=== PATIENT | female | born 1985 | race Caucasian/White ===

== ENCOUNTER 2017-03-15 14:58 | Emergency (ER) | payer OTHER ==
[2017-03-15 16:07] LABS: #Basophils 0.1 thou/uL (0.0-0.2); #Eosinphils 0.5 thou/uL (0.0-0.7); #Lymphocytes 2.4 thou/uL (1.20-3.40); #Monocytes 0.7 thou/uL (0.11-0.59); #Neutrophils 9.6 thou/uL (1.40-6.50); %Basophils 0.5 % (0.0-1.0); %Eosinophils 3.8 % (0.0-10.0); %Lymphocytes 17.9 % (21.0-51.0); %Monocytes 5.3 % (0.0-10.0); Hematocrit 38.8 % (36.0-47.0); Mean Platelet Volume 8.1 fL (7.4-10.4); Red Blood Cell (RBC) Count 4.37 mill/uL (4.20-5.40); White Blood Cell (WBC) Count 13.3 thou/uL (4.8-10.8)
[2017-03-15 16:26] LABS: Bilirubin Negative (Negative); Blood, Urine Negative (Negative); Glucose, Urine (Dipstick) Negative (Negative); Ketone, Urine Negative (Negative); Nitrite Negative (Negative); Protein, Urine (Dipstick) Negative (Neg-Trace)
[2017-03-15 16:38] LABS: ALT (SGPT) 18 U/L (8-55); AST (SGOT) 17 U/L (5-34); Alkaline Phosphatase 72 U/L (40-150); Anion Gap 12 mmol/L (10-20); BUN (Urea Nitrogen) 9 mg/dL (7.0-18.7); Bilirubin, Total 0.3 mg/dL (0.2-1.2); Calc. Creatinine Clearance 0 mL/min (70-130); Carbon Dioxide 25 mmol/L (22-29); Chloride 107 mmol/L (98-107); Estimated GFR-MDRD Greater than 90; Globulin 3.4 g/dL (2.4-3.5); Protein, Total 7.4 g/dL (6.0-8.3)
--- NOTE | 2017-03-15 19:33 | ULT ---
ULTRASOUND PELVIC ULTRASOUND TRANSVAGINAL DOPPLER DUPLEX: HISTORY: A 31-year-old female with right ectopic . Followup. COMPARISON: None available. TECHNIQUE: Transabdominal transducer used to evaluate intrapelvic contents using the urinary bladder as an acou stic window. Endovaginal transducer used to visualize intrapelvic contents in greater detail. Color flow Doppler and Pulsed Doppler spectral waveform analysis of ovaries. FINDINGS: Uterus: 8.5 x 4.5 x 6 cm. Endometrial stripe: 0.7 cm (7 mm). Right ovary: 2.5 x 2 x 4 cm. Left ovary: 3 x 1.5 x 2 cm. No uterine leiomyoma is identified. Blood flow is demonstrated in both ovaries. No ovarian cyst (defined as 2 cm or greater) is identified. No free fluid is in the cul-de-sac. No ectopic gestation is visualized. No intrauterine gestational sac is visualized. IMPRESSION: 1. Normal. 2. Nonvisualization of ectopic on ultrasound does not rule it out. terese POS: [facility]
== END 2017-03-15 18:21 | disposition home or self-care (01) ==
LOC: ERS 14:58
DX: O03.9 Complete or unspecified spontaneous abortion without complication (principal); D64.9 Anemia, unspecified; F41.9 Anxiety disorder, unspecified; F17.210 Nicotine dependence, cigarettes, uncomplicated
CPT/HCPCS: 76856; 80053; 81003; 81025; 84702; 85025; 88305

== ENCOUNTER 2017-06-01 08:42 | Emergency (ER) | payer OTHER ==
[2017-06-01 09:22] LABS: #Basophils 0.1 thou/uL (0.0-0.2); #Eosinphils 0.4 thou/uL (0.0-0.7); #Lymphocytes 1.7 thou/uL (1.20-3.40); #Monocytes 0.5 thou/uL (0.11-0.59); #Neutrophils 3.6 thou/uL (1.40-6.50); %Basophils 0.8 % (0.0-1.0); %Eosinophils 7.2 % (0.0-10.0); %Lymphocytes 26.9 % (21.0-51.0); %Monocytes 7.3 % (0.0-10.0); %Neutrophils 57.8 % (42.0-75.0); Hemoglobin 12.3 g/dL (12.0-16.0); Mean Corpuscular HGB CONC 33.1 g/dL (32.0-36.0); Mean Corpuscular Hemoglobin 29.3 pg (27.0-31.0); Mean Corpuscular Volume 88.7 fl (81.0-99.0); Mean Platelet Volume 8.2 fL (7.4-10.4); Platelet Count 294 thou/uL (130-400); RBC Distribution Width 13.7 % (11.5-14.5); Red Blood Cell (RBC) Count 4.19 mill/uL (4.20-5.40); White Blood Cell (WBC) Count 6.2 thou/uL (4.8-10.8)
[2017-06-01 09:25] LABS: BHCG - Serum POSITIVE (NEGATIVE)
[2017-06-01 09:26] LABS: Pregs Control Background? CLEAR/WHITE (CLR/WHITE); Pregs Control Bar Appear? YES (CONTROL BAR)
--- NOTE | 2017-06-01 10:10 | ULT ---
PELVIC ULTRASOUND WITH DOPPLER: (Transabdominal, transvaginal, tejeda scale, color flow, and spectral Doppler) HISTORY: Pelvic pain. FINDINGS: The uterus measures 10 x 5.5 x 6.7 cm without focal mass or endometrial fluid. The endometrium measu res 1 cm in thickness. No intrauterine gestational sac is seen The right ovary measures 3.6 x 2.8 x 2.7 cm and the left ovary measures 2.1 x 1.4 x 2.3 cm. Flow is demonstrated to both ovaries. No ad nexal mass is seen. A tiny amount of free fluid is seen in the cul-de-sac. IMPRESSION: No significant abnormalities identified. POS: [facility]
[2017-06-01 10:22] LABS: Bilirubin Negative (Negative); Blood, Urine Negative (Negative); Clarity CLEAR (Clear); Glucose, Urine (Dipstick) Negative (Negative); Leukocyte Negative (Negative); Nitrite Negative (Negative); Protein, Urine (Dipstick) Negative (Neg-Trace); Specific Gravity, Urine 1.007 (1.002-1.036); Urobilinogen 0.2 mg/dL (0.2-1.0)
== END 2017-06-01 10:57 | disposition home or self-care (01) ==
LOC: ERS 08:42
DX: O99.89 Other specified diseases and conditions complicating pregnancy, childbirth and the puerperium (principal); R10.32 Left lower quadrant pain; O99.211 Obesity complicating pregnancy, first trimester; O99.341 Other mental disorders complicating pregnancy, first trimester; F41.9 Anxiety disorder, unspecified; O99.331 Smoking (tobacco) complicating pregnancy, first trimester; F17.210 Nicotine dependence, cigarettes, uncomplicated; Z3A.01 Less than 8 weeks gestation of pregnancy
CPT/HCPCS: 36415; 76856; 81003; 84702; 84703; 85025; 86900; 86901; 93976

== ENCOUNTER 2017-08-19 12:16 | Emergency (ER) | payer OTHER ==
[2017-08-19 12:47] LABS: Bilirubin Negative (Negative); Blood, Urine Large (Negative); Clarity CLEAR (Clear); Glucose, Urine (Dipstick) Negative (Negative); Leukocyte Moderate (Negative); Nitrite Negative (Negative); Protein, Urine (Dipstick) Trace mg/dL (Neg-Trace); Specific Gravity, Urine 1.025 (1.002-1.036)
[2017-08-19 12:51] LABS: Bacteria/HPF 1+ HPF (None Seen)
[2017-08-19 12:56] LABS: Pathc Cast-AUWi Flag 3.38 (0-2.49)
[2017-08-19 13:07] LABS: Hyaline Casts/LPF NONE SEEN LPF (0-3 Hyaline); Manual Microscopic Reviewed? No Path Casts Seen
[2017-08-19 13:16] LABS: #Eosinphils 0.2 thou/uL (0.0-0.7); #Lymphocytes 1.8 thou/uL (1.20-3.40); #Monocytes 0.7 thou/uL (0.11-0.59); #Neutrophils 10.3 thou/uL (1.40-6.50); %Basophils 0.2 % (0.0-1.0); %Eosinophils 1.6 % (0.0-10.0); %Monocytes 5.6 % (0.0-10.0); %Neutrophils 78.6 % (42.0-75.0); Hemoglobin 12.5 g/dL (12.0-16.0); Mean Corpuscular HGB CONC 34.2 g/dL (32.0-36.0); Mean Corpuscular Hemoglobin 29.7 pg (27.0-31.0); Mean Corpuscular Volume 86.8 fl (81.0-99.0); Mean Platelet Volume 8.3 fL (7.4-10.4); Platelet Count 259 thou/uL (130-400); RBC Distribution Width 13.6 % (11.5-14.5); Red Blood Cell (RBC) Count 4.19 mill/uL (4.20-5.40); White Blood Cell (WBC) Count 13.1 thou/uL (4.8-10.8)
--- NOTE | 2017-08-19 15:12 | ULT ---
OB ULTRASOUND COMPLETE: Date: 08/19/17 HISTORY: 31-year-old female with history of vaginal bleeding. FINDINGS: Single viable intrauterine fetus noted in cephalic presentation. Placenta is anterior and right-sided . heart rate is 141 beats/minute. Cervical length appears to be within normal limits. Amniotic fluid is within normal limits. There is no evidence for placenta previa or abruptio placenta. There i s some focal thickening of the anterior myometrium, probably a contraction wave or possibly related t o an underlying fibroid. anatomy was not addressed at the time of this examination. Biometry: BPD: 3.4 cm, 16 weeks/3 days HC: 12.3 cm, 16 weeks/1 day AC: 9.7 cm, 15 weeks/5 days FL: 1.8 cm, 15 weeks/2 days IMPRESSION: 1. Single, viable intrauterine fetus at 15 weeks and 6 days of gestation with an EDC of 02/04/2018. 2. No evidence for placenta previa or abruptio placenta. POS: [facility]
== END 2017-08-19 16:24 | disposition home or self-care (01) ==
LOC: ERS 12:16
DX: O20.9 Hemorrhage in early pregnancy, unspecified (principal); O99.332 Smoking (tobacco) complicating pregnancy, second trimester; Z3A.16 16 weeks gestation of pregnancy
CPT/HCPCS: 36415; 76805; 81003; 81015; 85025; 86900; 86901

== ENCOUNTER 2017-09-30 13:48 | Day surgery (SDC) | payer OTHER ==
[2017-09-30 14:44] VITALS: BMI 34.7
[2017-09-30] MEDS ORDERED: Lactated Ringer's 1,000 ML IV SCH (15:45)
--- NOTE | 2017-09-30 15:52 | PDOC.EVN ---
Event Note - Event Note Event Note: L&D follow up: Sono results: AKHIL was 3.8 with largest pocket around 1.7 (oligo). There is no evidence of previa. Cervix length was 2.8cm. I have discussed this with the patient. This bleed may be due to chronic abruption due to smoking. As there is no acute Vag Bleed nor evidence of ROM, I have discussed limited options at this time. Recommend steroids at 23 weeks (currently 22 weeks and 2 days). I also reviewed case with Dr lindo who will see her as scheduled tomorrow for routine follow up. Recommend reduction in smoking and use of nicoderm patches OTC rather than smoking if able. Patient NOT to use use BOTH together.
--- NOTE | 2017-09-30 16:11 | ULT ---
LIMITED OBSTETRICAL ULTRASOUND: 09/30/17 INDICATION: History of vaginal bleeding at 22 weeks of gestation. COMPARISON: Prior exam dated 08/19/17. FINDINGS: There is a single live intrauterine gestation in transverse presentation with cardiac activity noted at 133 beats per minute. The AKHIL is diminished at 3.4 cm. Cervical length measured 2.8 cm. No appreci able funneling or widening of the cervical internal os is present. The placenta is anterior and james l in location without evidence of previa. IMPRESSION: 1. Shortening of the cervical length is suspicious for cervical incompetence at this gestational age. There is no evidence of funneling. 2. Oligohydramnios. 3. Dr. Dillon was present at the examination with the biomedical instrument technician and was aware of the findings as per the biomedical instrument technician. POS: [facility]
--- NOTE | 2017-09-30 16:35 | HP ---
DATE OF SERVICE: 09/30/2017 TIME: 1500 LOCATION: Labor and Delivery. TIME OF EVALUATION: 1500 hours. This is a patient of Dr. Viktor Singh. Gestational age is a 22-weeks and 2 days. REASON FOR EVALUATION: History of vaginal bleeding, but no clots. HISTORY OF PRESENT ILLNESS: In brief, this is a 31-year-old , ectopic 1, who presents at 22 wee ks and 2 days with a history of vaginal bleeding like a period. She does not have a history of recen t trauma, sexual intercourse, or passing clots. She does follow maternal medicine for ultrasou nd for "low fluid." By report, there has been no history of placenta previa previously. Significant history is that she is a smoker, but denies drug use. OBSTETRICAL HISTORY: Significant for having twins with her first with one intrauterine fet al demise, this resulted in a primary at 36 weeks for the surviving twin. Her second pregn higinio was in 2003, which is a repeat at 35 weeks, but I am unsure of why that occu rred. Her third was an ectopic treated with methotrexate. The patient then had a BTL that is a tubal ligation and then a subsequent reversal at her desire. REVIEW OF SYSTEMS: Complete review of systems was performed and is otherwise negative unless dictate d in the HPI. ALLERGIES: None. PAST MEDICAL HISTORY: Otherwise noncontributory. OBSTETRIC HISTORY: As previously discussed in the HPI, significant for 2 prior C-sections. Again jv arnold states that she is followed by maternal medicine for "low fluid," but has not been told that she has a previa. PAST SURGICAL HISTORY: sections as previously dictated and a tubal ligation with reversal. PHYSICAL EXAMINATION: VITAL SIGNS: Her temperature is 99.2, blood pressure is 130/60 and her pulse is 104. Clinically, jv arnold is in no acute distress. ABDOMEN: Soft and nontender. There is no hypertonus on palpation. On perineal inspection, there wa s a sanitary pad with about 10-15 mL of blood visually on it. There was no evidence of clots or acti ve bleeding at this time. I deferred a cervical examination until a transvaginal ultrasound confirms no previa. There is no evidence of watery discharge at this time. heart tones are in the 140 s to 150s by Doppler. External monitors were not done due to the gestational age of 22 weeks. ASSESSMENT: This is a multigravida, prior section x2, smoker, at 22 weeks and 2 days with v aginal bleeding. No history of previa by her report. This may represent a small placental separatio n due to her smoking history. PLAN: 1. IV hydration. 2. I have ordered a transvaginal ultrasound to confirm absence of a previa and to look for cervical length. 3. The patient's blood type is Rh positive (A positive), so she does not require RhoGAM. 4. Viability have been discussed with her and questions answered. 5. Observation for now.
== END 2017-09-30 16:38 | disposition home or self-care (01) ==
LOC: L&D/OP 13:48
PROVIDERS: ATTEND Obstetrics & Gynecology
DX: O46.92 Antepartum hemorrhage, unspecified, second trimester (principal); Z3A.22 22 weeks gestation of pregnancy; Z79.899 Other long term (current) drug therapy; Z98.891 History of uterine scar from previous surgery; Z98.890 Other specified postprocedural states
CPT/HCPCS: 76815; 96360; 99282

== ENCOUNTER 2017-10-05 15:00 | Day surgery (SDC) | payer OTHER ==
[2017-10-05] MEDS ORDERED: Betamet Acet/Betamet Na Ph 30 MG/5 ML VIAL IM SCH (15:30)
--- NOTE | 2017-10-05 15:46 | PDOC.LDHP ---
Labor and Delivery H&P Chief complaint: other (bleeding) HPI: 31 y/o at 23w0d, patient of Dr. Singh, presents with continued vaginal bleeding with passage of occasional small clots. Has some mild period-like cramps but no significant pain. Denies ctx, LOF, or decreased FM. She was seen here on 09/30 with similar complaints and noted to have oligohydramnios on US with shortened cervix. Plan was to receive steroids at 23 weeks. Has seen MFM for low fluid. ROS neg for HEENT, cv, pulm, gi, gu, neuro, psych, skin, musculoskeletal or constitutional symptoms other than mentioned above. OB History Details: 1: Twin - twin B with IUFD. Delivered via LTCS at 36 weeks. 2: 35 week RLTCS with BTL. Tubal reversal 3: ectopic treated with MTX Current complications: other (bleeding) Past Medical History: None Current medications: pre- vitamins Previous surgical history: low tranverse CS Allergies/Adverse Reactions: Allergies Allergy/AdvReac Type Severity Reaction Status Date / Time No Known Allergies Allergy Verified 09/30/17 14:30 Social history: tobacco use - Physical Exam Vital signs reviewed and normal: yes General: NAD, resting Lungs: nonlabored breathing Abdomen: gravid Extremeties: no edema FHT: category 1 (150s, mod variability, + accels, no decels) [place] contractions every: None - Vaginal Exam cm dilated: 0 (firm, posterior; no bleeding on spec exam) Effacement: 0% Station: -3 - OB Labs Blood type: A RH: positive - Assessment 31 y/o at 23w0d with no e/o active bleeding or PTL. I performed a bedside ultrasound to assess fluid (AKHIL 3.75), lie (breech). status reassuring with reactive NST. - Plan -: Celestone ordered. D/c home with precautions. Will return tomorrow for 2nd dose. Keep appointment with Dr. Singh Friday.
== END 2017-10-05 16:21 | disposition home or self-care (01) ==
LOC: L&D/OP 15:00 → EDSTATUS 16:06 → L&D/OP 16:21
PROVIDERS: ATTEND Obstetrics & Gynecology
DX: O46.92 Antepartum hemorrhage, unspecified, second trimester (principal); Z3A.23 23 weeks gestation of pregnancy; Z79.899 Other long term (current) drug therapy; Z98.891 History of uterine scar from previous surgery
CPT/HCPCS: 76815; 96372; 99282; J0702

== ENCOUNTER 2017-10-06 16:34 | Day surgery (SDC) | payer OTHER ==
[2017-10-06] MEDS ORDERED: Betamet Acet/Betamet Na Ph 30 MG/5 ML VIAL ONE (16:43)
[2017-10-06] MEDS ORDERED: Betamet Acet/Betamet Na Ph 30 MG/5 ML VIAL IM SCH (17:30)
== END 2017-10-06 16:50 | disposition home or self-care (01) ==
LOC: L&D/OP 16:34
PROVIDERS: ATTEND Obstetrics & Gynecology
DX: O46.92 Antepartum hemorrhage, unspecified, second trimester (principal); O99.332 Smoking (tobacco) complicating pregnancy, second trimester; F17.200 Nicotine dependence, unspecified, uncomplicated; Z3A.23 23 weeks gestation of pregnancy; Z79.899 Other long term (current) drug therapy; Z98.891 History of uterine scar from previous surgery
CPT/HCPCS: 96372; 99282; J0702

== ENCOUNTER 2017-10-09 06:44 | Observation (INO) | payer OTHER ==
[2017-10-09 07:17] VITALS: BMI 35.0
--- NOTE | 2017-10-09 07:51 | PDOC.LDHP ---
Labor and Delivery H&P Chief complaint: other (Vaginal bleeding) HPI: Arrival to Triage at [address] lindo CC: Here for vag bleed (no clots) 31 yo at 23 weeks 4 days, here for vag bleed (slight). States bleeding " all through ". She has already received steroids. She saw Dr lindo yesterday and cervix was closed. I have seen this patient earlier this month as well. She has known oligo and has seen MFI. I had discussed with her probable chronic marginal abruption. Smoker. No previa. No recent sex, no trauma. ROS: Complete ROS performed and as per HPI Current gestational age (weeks): 23 (4) Grav: 4 Para: 2 (No HX PTL) Current complications: other (chronic vag bleed episodes. No previa) Current medications: pre-braeden vitamins Allergies/Adverse Reactions: Allergies Allergy/AdvReac Type Severity Reaction Status Date / Time No Known Allergies Allergy Verified 10/09/17 07:18 Social history: tobacco use - Physical Exam Vital signs reviewed and normal: yes General: NAD Heart: RRR Lungs: CTAB Abdomen: gravid [place] contractions every: FHTs 140s on doppler, no contractions seen - Assessment 23 weeks and 4 days suspected chronic abruption. No previa last check. Steroids already given. RH pos.HX low amniotic fluid (no evidence rupture). - Plan Plan: observation in L&D (We will IV hydrate. Known low amniotic fluid and has had MFM follow up. Steroids given. No active VB curretly. I will check out to the next oncoming physician at 0800 (5 minutes).), other
[2017-10-09] MEDS ORDERED: Lactated Ringer's 1,000 ML IV SCH (08:00)
[2017-10-09 09:25] LABS: Hemoglobin 11.6 g/dL (12.0-16.0); Mean Corpuscular HGB CONC 35.1 g/dL (32.0-36.0); Mean Corpuscular Volume 88.3 fl (81.0-99.0); Platelet Count 299 thou/uL (130-400); Red Blood Cell (RBC) Count 3.75 mill/uL (4.20-5.40); White Blood Cell (WBC) Count 20.6 thou/uL (4.8-10.8)
[2017-10-09 09:41] LABS: Band 19 % (5-11); Eosinophils 2 % (0-10); Lymphocytes 18 % (21-51); MDiff Complete? YES; Monocytes 8 % (0-10); Neutrophil 53 % (42-75); RBC Morphology Normal
[2017-10-09] MEDS ORDERED: Promethazine HCl 25 MG/ML VIAL IM PRN (09:53)
--- NOTE | 2017-10-09 10:02 | ULT ---
LIMITED OBSTETRICAL ULTRASOUND: INDICATION: Evaluate cervical pain. COMPARISON: Prior exam dated 10/08/17. FINDINGS: The cervical length measures 2.9 cm, which is relatively stable to the comparison examination dated where it measured 2.82 cm. Internal loss of fluid is present. There is a single intrauterine gestation in breech presentation present with cardiac activity noted at 158 b.p.m. The oligohydramni os does not appear qualitatively different from the prior. IMPRESSION: 1. Limited obstetrical ultrasound to evaluate cervical length. 2. Cervical length measures 2.9 cm, stable to the most recent examination dated 09/30/17. POS: [facility]
[2017-10-09] MEDS ORDERED: Ondansetron ODT 8 MG TAB SL PRN ×2 (10:55→17:20)
[2017-10-09] MEDS ORDERED: Ondansetron HCl/PF 4 MG/2 ML Vial IVP SCH (11:00)
[2017-10-09] MEDS: metroNIDAZOLE 500 MG TAB PO SCH ×3 (13:30→23:54)
[2017-10-09] MEDS ORDERED: Morphine 4 MG/ML VIAL SLOW IVP SCH (17:30)
[2017-10-09] MEDS: Lactated Ringer's 1,000 ML IV SCH ×2 (17:34→22:24)
[2017-10-09] MEDS ORDERED: Acetaminophen/Codeine 30-300mg Tablet PO PRN (17:35)
[2017-10-09] MEDS: Acetaminophen/Codeine 30-300mg Tablet PO PRN (19:40)
[2017-10-09 20:01] VITALS: TEMP 98.3
[2017-10-09] MEDS ORDERED: Zolpidem Tartrate 5 MG TAB PO PRN (20:51)
[2017-10-09] MEDS: Morphine 4 MG/ML VIAL SLOW IVP PRN (21:22)
[2017-10-10] MEDS: Morphine 4 MG/ML VIAL SLOW IVP PRN (01:42)
[2017-10-10] MEDS: Acetaminophen/Codeine 30-300mg Tablet PO PRN (04:46)
[2017-10-10 06:25] LABS: Band 12 % (5-11); Hemoglobin 10.7 g/dL (12.0-16.0); Lymphocytes 6 % (21-51); MDiff Complete? YES; Mean Corpuscular HGB CONC 34.8 g/dL (32.0-36.0); Mean Corpuscular Hemoglobin 31.8 pg (27.0-31.0); Mean Corpuscular Volume 91.4 fl (81.0-99.0); Mean Platelet Volume 8.6 fL (7.4-10.4); Metamyelocyte 1 % (0-0); Monocytes 5 % (0-10); Neutrophil 76 % (42-75); Platelet Count 267 thou/uL (130-400); RBC Distribution Width 13.1 % (11.5-14.5); Red Blood Cell (RBC) Count 3.38 mill/uL (4.20-5.40); White Blood Cell (WBC) Count 20.2 thou/uL (4.8-10.8)
[2017-10-10 07:48] VITALS: BP 106/62
--- NOTE | 2017-10-10 07:55 | PRG ---
DATE OF SERVICE: 10/10/2017 PRIMARY OB: Dr. Singh HISTORY OF PRESENT ILLNESS: The patient is a 31-year-old G4, P2 female with an intrauterine at 23 weeks and 5 days who was admitted yesterday for observation due to new onset abdominal pains and continued vaginal bleeding over the last 24 hours. The patient reports that her abdominal pains and cramping has not improved much but has not gotten any worse. She does report that a couple of the contractions have been severe. This morning the patient has reported 2 episodes of leakage of fluid, given the amount of bleeding that she has been having we have been unable to test in the traditional fashion. On speculum exam, there does not appear to have any pooling. There is still the mucousy bloody discharge from the os, but appears to be unchanged from yesterday. PHYSICAL EXAMINATION: VITAL SIGNS: This morning blood pressure is 106/62, heart rate of 82, respiratory rate of 18, temperature 98.3. GENERAL: She appears much more relaxed than yesterday. No acute distress. ABDOMEN: Soft and nontender. PELVIC: Perineum was cleaned at the time of exam Vagina is moist, with minimal bloody discharge. Her cervix is visibly closed with a mucousy discharge. On Valsalva a small amount of thin mucousy bloody fluid came out, once it was removed the patient was asked to Valsalva again and there was nothing present. Bedside ultrasound was performed. The baby is in errol breech presentation. Visibly there is extremely low amount of fluid. There is a pocket up at the fundus about 1.5 cm deep and a couple other very small pockets not measured by myself. The most recent AKHIL was measured at 3.5 on 09/30/2017. A CBC was repeated this morning. White count is 20,000, which is stable from yesterday. Hemoglobin 10.7, hematocrit 30.9, platelets 267,000. She is starting to show a left shift with neutrophil percentage of 76,000. Bands are still elevated at 12. heart rate measured in the 150s. ASSESSMENT AND PLAN: The patient is a 31-year-old with an intrauterine at 23 weeks and 5 days who was admitted for observation due to new onset uterine contractions and persistent vaginal bleeding. The patient is known to have oligohydramnios and has for some time now with no evidence of rupture of membranes. This morning the patient has had 2 episodes of leakage of fluid. I cannot confirm that this came from the uterus; however, visibly the fluid looks to be much less than what has been reported. I will order a formal ultrasound to have it measured and compared in the same fashion as before. The patient has an elevated white count of 20,000 with a left shift, now. I am concerned that she may be developing infection. She did recently get steroids earlier in the week that may also be contributing to a leukocytosis. There are no other signs or symptoms of infection. Her vaginal bleeding persists. Her hemoglobin and hematocrit have dropped from yesterday, but may be due to IV hydration. IV fluids have been discontinued. At this point after 24 hours of maintenance fluids the patient is probably well hydrated and the patient is taking p.o. I have discussed the patient with her primary OB, Dr. Viktor Singh who would prefer that if a low threshold of transfer to [place] given her gestational age. He will be faxing the patient's records to Labor and Delivery this morning. JACKIE
[2017-10-10] MEDS: metroNIDAZOLE 500 MG TAB PO SCH (08:33)
--- NOTE | 2017-10-10 08:50 | PDOC.EVN ---
Event Note - Event Note Event Note: @[id number]: I assumed care t6his AM as the OBGYN yard conductor. I reviewed the case with Dr Leach (on yesterday) and Dr lindo. Here is our update: I evaluated the patient at bedside, during her repeat OB sono by the psychology technician. There is a concern of possible leakage now. Exam (not amnisure) was unclear per Alba. WBC persistently elevated at 20 (steroids were about 1 week ago). The current issues are: 23 weeks 5 days EGA Possible PPROM Breech Chronic vag bleed (possible marginal separation) Persistent leuckocytosis Because of the possibility of PPROM with elevated WBC count, I have discussed the acse informally (phone) with MFM at the [employer] ([facility] Best plan is to transfer ther patient to [facility] [place] for further evaluation. I have discussed this with the patient. I have also ordered Amp/Erythro IV this AM for suspected PPROM (she is already on Flagyl per MD Alba). Transfer ceneter call initiated by me 5 minutes ago...awaiting word.
--- NOTE | 2017-10-10 08:53 | PDOC.EVN ---
Event Note - Event Note Event Note: Pharmacy note: No EMycin...switched to Azithromax 1 gram IV x1 now
--- NOTE | 2017-10-10 08:54 | PDOC.EVN ---
Event Note - Event Note Event Note: Sono report (verbal) from this AM: 497grams FHTs 1502 AKHIL 4 Anterior placenta Breech
--- NOTE | 2017-10-10 09:09 | PDOC.EVN ---
Event Note - Event Note Event Note: Just spoke with OBGYN welder apprentice combination at [facility] via transfer center: We will start IV Mag So4 for neuroprotection now as we prepare for transfer. Transfer accepted.
[2017-10-10] MEDS ORDERED: Magnesium Sulfate 20 GM/WATER 500 ML BAG IVPB SCH (09:15)
--- NOTE | 2017-10-10 09:19 | PDOC.EVN ---
Event Note - Event Note Event Note: 10/10/17 TRANSFER NOTE (DISCHARGE NOTE) This patient is a 31 yo , smker, with chronic vaginal bleed (nonacute) and persistent oligo, s/p steroids at 23 weeks...now at 23 weeks 5 days, presented with same complaints of pelvic cramping and menstrual type bleed. WBC persistent at 20. Afebrile. CX length was >2.5 yesterday and sono this AM with EFW 497grams. Possible PPROM. Continued oligo by sono with AKHIL 4. Breech. No HX PTB. Interventions: IV flagyl IV Amp IV Zmax x 1 MagSulfate for neuroprotection ordered 10/10/17 AM (4gram bolus). Transfer arranged to [facility] for care. Patient has been conseled by me on plan of care and patient and partner agree. All questions addressed.
[2017-10-10] MEDS ORDERED: Azithromycin 1,000 MG in Sodium Chloride 0.9% 500 ML IVPB SCH (10:00)
--- NOTE | 2017-10-10 10:05 | ULT ---
OBSTETRIC SONOGRAM LIMITED: HISTORY: Premature rupture of membranes. FINDINGS: Multiple transabdominal sonographic views of the gravid uterus show a single intrauterine gestation i n breech presentation. Grade II placenta is fundal and anterior. Amniotic fluid index is 4.1. Adva nced age and lack of fluid limit anatomic detail. Estimated weight 497 gm (1 pound 2 oun kaushal). IMPRESSION: 1. Oligohydramnios. Amniotic fluid index=4.1. 2. Estimated weight 1 pound 2 ounces. POS: [facility]
--- NOTE | 2017-10-10 11:09 | PDOC.EVN ---
Event Note - Event Note Event Note: Transfer in process
[2017-10-10] MEDS ORDERED: Erythromycin 500 MG in Sodium Chloride 0.9% 250 ML 250 ML IVPB SCH (12:00)
[2017-10-10] MEDS ORDERED: Ampicillin 2 GM in Sodium Chloride 0.9% 100 ML IVPB SCH (12:00)
== END 2017-10-10 11:21 | disposition other institution, planned readmission (95) ==
LOC: L&D/OP 06:44 → L&D 20:33
PROVIDERS: ADMIT Obstetrics & Gynecology; ATTEND Obstetrics & Gynecology
DX: O60.02 Preterm labor without delivery, second trimester (principal); O46.92 Antepartum hemorrhage, unspecified, second trimester; Z3A.23 23 weeks gestation of pregnancy
CPT/HCPCS: 36415; 59025; 76815; 85007; 85025; 85027; 96361; 96365; 96375; 96376; 99285; A4216; G0378; J0290; J0456; J0595; J2270; J2405; J2550; J3475; J7050

== ENCOUNTER 2022-07-31 15:25 | Emergency (ER) | payer OTHER, SELFPAY ==
[2022-07-31 17:15] LABS: Pregnancy Test - Urine (BHCG) Negative (Negative); Pregu Control Background? CLEAR/WHITE (CLR/WHITE); Pregu Control Bar Appear? YES (CONTROL BAR); Specific Gravity 1.034 (1.002-1.036)
[2022-07-31] MEDS ORDERED: Ondansetron PF 4 MG/2 ML Vial ONE (18:21)
[2022-07-31] MEDS ORDERED: Morphine 4 MG/ML VIAL ONE (18:21)
[2022-07-31 19:01] LABS: #Eosinphils 0.1 thou/uL (0.0-0.7); #Lymphocytes 0.8 thou/uL (1.20-3.40); #Monocytes 0.6 thou/uL (0.11-0.59); #Neutrophils 6.3 thou/uL (1.40-6.50); %Basophils 0.1 % (0.0-1.0); %Lymphocytes 10.5 % (21.0-51.0); %Monocytes 8.1 % (0.0-10.0); %Neutrophils 80.2 % (42.0-75.0); Hemoglobin 13.7 g/dL (12.0-16.0); Mean Corpuscular HGB CONC 34.1 g/dL (32.0-36.0); Mean Corpuscular Hemoglobin 30.6 pg (27.0-31.0); Mean Corpuscular Volume 89.7 fl (78.0-98.0); Mean Platelet Volume 9.1 fL (7.4-10.4); Platelet Count 309 10x3/uL (130-400); Red Blood Cell (RBC) Count 4.47 mill/uL (4.20-5.40); White Blood Cell (WBC) Count 7.9 10x3/uL (4.8-10.8)
[2022-07-31 19:19] LABS: ALT (SGPT) 13 U/L (8-55); AST (SGOT) 14 U/L (5-34); Albumin 4.3 g/dL (3.5-5.0); Alkaline Phosphatase 87 U/L (40-110); Anion Gap 13 mmol/L (10-20); BUN (Urea Nitrogen) 9 mg/dL (7.0-18.7); Bilirubin, Total 0.2 mg/dL (0.2-1.2); Calc. Creatinine Clearance 0 mL/min (70-130); Calcium 9.2 mg/dL (7.8-10.44); Carbon Dioxide 21 mmol/L (22-29); Chloride 107 mmol/L (98-107); Estimated GFR 114; Globulin 3.9 g/dL (2.4-3.5); Glucose 89 mg/dL (70-105); Potassium 3.7 mmol/L (3.5-5.1); Protein, Total 8.2 g/dL (6.0-8.3); Sodium 137 mmol/L (136-145)
[2022-07-31] MEDS ORDERED: Dexameth. Sod Phosp. 10 MG/ML (CHEMO USE ONLY) ONE (19:34)
[2022-07-31] MEDS ORDERED: Ketorolac Tromethamine 30 MG/ML VIAL ONE (19:34)
== END 2022-07-31 20:30 | disposition home or self-care (01) ==
LOC: ERS 15:25
DX: M54.50 Low back pain, unspecified (principal); F17.210 Nicotine dependence, cigarettes, uncomplicated
CPT/HCPCS: 74176; 80053; 81025; 85025; 96374; 96375; J1100; J1885; J2270; J2405